=== PATIENT | male | born 1960 | race Caucasian/White ===

== ENCOUNTER 2017-02-20 09:08 | Inpatient (IN) | payer BC ==
[2017-02-05 13:28] VITALS: BMI 37.0
[2017-02-05 13:38] VITALS: BMI 37.0
[~2017-02-20] VITALS: Ht 190.5 cm; Wt 136.4 kg
[2017-02-20] VITALS (9 sets, daily range): BP systolic 110–166; BP diastolic 61–99; PULSE 67–94; TEMP 36.4–36.9; O2SAT 92–99; Ht 190.5 cm; Wt 136.4 kg
[~2017-02-20 09:08] MED LIST: ASPEC81 PO; ATOR-24 PO; ATROPINE SULFATE 0.1 MG/ML 5ML SYR IV PRN; CARV20CA PO; CEFAZOLIN 3000 MG/65 ML D5W IV SCH; CHOL20005 PO; CeleBREX 200 MG CAP PO SCH; EpHEDrine SULFATE INJ 50 MG/ML AMP IV PRN; FENTANYL CITRATE INJ 50 MCG/1 ML 2 ML VIAL IV PRN; HYDROmorphone INJ 1 MG/ML SYR IV PRN; INDO50CA97 PO; LACTATED RINGER'S 1000ML 1,000 ML IV SCH; LANS30CA63 PO; MULT-506 PO; OMEG10007 PO; ONDANSETRON INJ 2 MG/ML 2 ML VIAL IV PRN; PERI8TAB4 PO; PREGABALIN 75 MG CAP PO SCH
[2017-02-20] MEDS ORDERED: ACETAMINOPHEN 1000 MG/100 ML IV IV ONE ×2 (10:49→11:00)
[2017-02-20] MEDS ORDERED: FENTANYL CITRATE INJ 50 MCG/1 ML 2 ML VIAL ONE ×2 (10:56→14:49)
[2017-02-20] MEDS ORDERED: HYDROmorphone INJ 2 MG/ML SYR/VIAL ONE (10:57)
[2017-02-20] MEDS ORDERED: CeleBREX 200 MG CAP ONE (11:00)
[2017-02-20] MEDS ORDERED: PREGABALIN 75 MG CAP ONE (11:01)
[2017-02-20] MEDS ORDERED: CEFAZOLIN IV 3,000 MG/65 ML D5W IV ONE (11:01)
[2017-02-20] MEDS ORDERED: THROMBIN FOR SOLN 20000 UNIT KIT ONE ×2 (11:47→13:06)
[2017-02-20] MEDS ORDERED: THROMBIN 5000 UNITS KIT ONE (11:47)
[2017-02-20] MEDS ORDERED: HEPARIN SOD (PORCINE) 1000 UNIT/ML 10 ML VIAL ONE (11:47)
[2017-02-20] MEDS ORDERED: BACITRACIN 50000 UNIT VIAL ONE (11:47)
[2017-02-20] MEDS ORDERED: BUPIVACAINE/EPINEPHRINE 0.5% MPF 1:200,000 30 ML VIAL ONE (11:47)
--- NOTE | 2017-02-20 11:54 | History and Physical ---
History & Physical Date Feb 20, 2017. Chief Complaint LBP and neurogenic claudication History of Present Illness The patient is a 57 year old male with complaints of above due to spinal stenosis above a prior L3-5 PSF. He did well for years following prior procedure then reported decreased activity tolerance. He can only walk a quarter mile before sitting and is unable to work at this time due to pain. MRI shows L2-3 stenosis/DDD/scoliosis. stable caudal hardware. Past Medical/Surgical History CAD s/p CABG 2006 echo EF 55% good exercise tolerance cleared by cards periph neuropathy OA ACDF lumbar fusion Additional History Hepatic Disease: No Endocrine Disorder: No Kidney Disease: No Hypertension: No Heart Disease: Yes Bleeding Tendencies: No Infectious Diseases: No Allergies Coded Allergies: Diazepam (Verified Allergy, Severe, HEART STOPPED, 02/20/17) NURSE PUSHED IT IN TOO FAST Home Medications Scheduled Aspirin Enteric Coated (Ecotrin Or Generic *), 81 MG PO HS Atorvastatin (Lipitor), 40 MG PO QPM Carvedilol Phosphate (Coreg Cr), 20 MG PO QAM Cholecalciferol (Vitamin D3), 2,000 UNIT PO QAM Fish Oil ([place]-3), 1 CAP PO QAM Lansoprazole (Prevacid), 30 MG PO HS Multivitamin (Multivitamin), 1 TAB PO QAM Perindopril Erbumine (Perindopril Erbumine), 8 MG PO QAM Scheduled PRN Indomethacin (Indocin), 50 MG PO TID PRN for PRN Physical Examination Skin: warm/dry Eyes: normal inspection ENT: normal ENT inspection Head: normocephalic, atraumatic Neck: supple, trachea midline Respiratory/Chest: lungs clear, no respiratory distress Cardiovascular: regular rate, rhythm Abdomen / GI: non tender Extremities: normal inspection, normal range of motion Neurologic/Psych: no motor/sensory deficits, alert, normal reflexes, oriented x 3 Diagnosis L2-3 stenosis, L1-3 scoliosis/DDD Plan of Treatment L2-3 decompression, L1-3 PSF
[2017-02-20] MEDS ORDERED: EpHEDrine SULFATE 50MG/5ML SYR ONE (14:11)
[2017-02-20] MEDS ORDERED: LIDOCAINE HCL 2% 2 ML VIAL (20MG/ML) ONE (14:11)
[2017-02-20] MEDS ORDERED: ONDANSETRON INJ 2 MG/ML 2 ML VIAL ONE (14:11)
[2017-02-20] MEDS ORDERED: ROCURONIUM BROMIDE 10 MG/ML 5 ML VIAL ONE (14:11)
[2017-02-20] MEDS ORDERED: EpHEDrine SULFATE INJ 50 MG/ML AMP ONE (14:11)
[2017-02-20] MEDS ORDERED: PROPOFOL IV EMULSION 10 MG/ML 20 ML VIAL IV ONE (14:11)
[2017-02-20] MEDS ORDERED: DEXAMETHASONE SOD INJ 4 MG/ML VIAL ONE (14:11)
[2017-02-20] MEDS ORDERED: PHENYLEPHRINE HCL INJ 10 MG/ML VIAL ONE (14:11)
[2017-02-20] MEDS ORDERED: SODIUM CHLORIDE 0.9% INJ 10 ML VIAL ONE (14:11)
[2017-02-20] MEDS ORDERED: FLOSEAL HEMOSTATIC MATRIX 10ML TOP ONE (14:13)
[2017-02-20] MEDS ORDERED: LARYING-O-JET KIT (LTA) EXT ONE ×2 (14:13)
[2017-02-20] MEDS ORDERED: NEOSTIGMINE METHYLSULFATE 5 MG/5 ML SYR ONE (14:13)
[2017-02-20] MEDS ORDERED: GLYCOPYRROLATE INJ 0.2 MG/ML VIAL ONE (14:13)
[2017-02-20] MEDS ORDERED: SODIUM CHLORIDE 0.9% 1000ML 1,000 ML IV SCH (14:34)
--- NOTE | 2017-02-20 14:34 | [facility] Post Operative Brief Note ---
Immediate Operative Summary Operative Date Feb 20, 2017. Pre-Operative Diagnosis L2-L3 Spinal Stenosis, L1-L3 Scoliosis, Degenerative Joint Disease Post-Operative Diagnosis Same as preoperative. Procedure(s) Performed L2-L3 Decompression; L3 Hardware Removal, L1-L3 Instrumented Fusion; Infuse; Arteriocyte Surgeon Urgent Care Physician Assistant Surgeon(s) None Estimated Blood Loss 400ML Findings dict Specimens A. Removed Lumbar Hardware
[2017-02-20] MEDS ORDERED: ALUMINUM/MAGNESIUM SUSP 30 ML UDC PO PRN (14:45)
[2017-02-20] MEDS ORDERED: NALOXONE HCL 0.4 MG/1 ML VIAL/CARP IV PRN ×2 (14:45)
[2017-02-20] MEDS ORDERED: SOD PHOSPHATE/SOD BIPHOSPHATE ENEMA 132 ML BTL PR PRN (14:45)
[2017-02-20] MEDS ORDERED: PROMETHAZINE HCL INJ 12.5 MG in SODIUM CHLORIDE 0.9% 50ML 50 ML IV PRN (14:45)
[2017-02-20] MEDS ORDERED: FAMOTIDINE 20 MG TAB PO PRN (14:45)
[2017-02-20] MEDS ORDERED: ONDANSETRON INJ 2 MG/ML 2 ML VIAL IV PRN (14:45)
[2017-02-20] MEDS ORDERED: BISACODYL 10 MG SUPP PR PRN (14:45)
[2017-02-20] MEDS ORDERED: HYDROmorphone INJ 0.5 MG/0.5 ML SYR IV PRN (14:45)
[2017-02-20] MEDS ORDERED: MAGNESIUM HYDROXIDE SUSP 30 ML UDC PO PRN (14:45)
--- NOTE | 2017-02-20 14:49 | DIAGNOSTIC IMAGING REPORT ---
LUMBAR SPINE 2 OR 3 VIEW CLINICAL HISTORY: T12-L3 DECOMPRESSION/FUSION/INTERBODY operative fusion TECHNIQUE: Image intensifier COMPARISON STUDY: None FINDINGS: Image intensifier was used for lumbar laminectomy and fusion IMPRESSION: Image intensifier usage for lumbar laminectomy and fusion Electronically signed by: Damián Doss M.D. 02/20/2017 2:48 PM Dictated Date/Time: 02/20/2017 2:47 PM
[2017-02-20] MEDS: HYDROmorphone HCL 0.5MG/ML 50 ML CASSETTE IV PRN ×3 (15:02→19:22)
--- NOTE | 2017-02-20 15:15 | Anesthesiology Progress Note ---
Anesthesia Post Op Note Date & Time Feb 20, 2017 at 15:15 Vital Signs Pain Intensity: 6 Vital Signs Past 12 Hours Date Time Temp Pulse Resp B/P Pulse Ox O2 Delivery O2 Flow Rate FiO2 02/20/17 15:02 80 16 97 02/20/17 15:02 80 16 02/20/17 15:00 156/83 02/20/17 14:57 84 16 95 02/20/17 14:57 84 16 02/20/17 14:52 74 12 02/20/17 14:52 75 12 97 02/20/17 14:50 146/73 02/20/17 14:47 76 19 02/20/17 14:47 86 19 97 02/20/17 14:45 146/70 02/20/17 14:42 36.4 67 16 148/78 97 Mask 10 02/20/17 14:42 65 14 96 02/20/17 14:42 65 14 02/20/17 09:26 36.7 75 18 166/99 Room Air Notes Mental Status: alert / awake / arousable, participated in evaluation Pt Amnestic to Procedure: Yes Nausea / Vomiting: adequately controlled Pain: adequately controlled Airway Patency, RR, SpO2: stable & adequate BP & HR: stable & adequate Hydration State: stable & adequate Anesthetic Complications: no major complications apparent
[2017-02-20] MEDS: SODIUM CHLORIDE 0.9% 1000ML 1,000 ML IV SCH (17:10)
[2017-02-20] MEDS: ACETAMINOPHEN IV 100 ML IV PRN (17:25)
[2017-02-20] MEDS: CEFAZOLIN IV 2,000 MG in DEXTROSE 5% 50ML 50 ML IV SCH (20:58)
[2017-02-20] MEDS: DOCUSATE SODIUM/SENNA 50/8.6MG TAB PO SCH (21:00)
[2017-02-20] MEDS: ASPIRIN 81 MG ECTAB PO SCH (21:00)
[2017-02-20] MEDS: PANTOprazole SOD 40 MG TAB PO SCH (21:01)
[2017-02-20] MEDS: ATORVASTATIN 40 MG TAB PO SCH (21:02)
[2017-02-20] MEDS: DEXAMETHASONE INJ 6 MG in SYRINGE 0 ML IV SCH (21:05)
[2017-02-21 04:00] VITALS: BP 110/71; PULSE 86; TEMP 36.7; O2SAT 95
[2017-02-21] MEDS: CEFAZOLIN IV 2,000 MG in DEXTROSE 5% 50ML 50 ML IV SCH (04:05)
[2017-02-21] MEDS: SODIUM CHLORIDE 0.9% 1000ML 1,000 ML IV SCH (04:06)
[2017-02-21] MEDS: ACETAMINOPHEN IV 100 ML IV PRN ×2 (05:26→13:38)
[2017-02-21] MEDS: DEXAMETHASONE INJ 6 MG in SYRINGE 0 ML IV SCH ×2 (05:30→13:38)
[2017-02-21] MEDS ORDERED: HYDROmorphone INJ 1 MG/ML SYR IV PRN (06:00)
[2017-02-21] MEDS ORDERED: DC PCA ONE (06:00)
[2017-02-21] MEDS ORDERED: HYDROmorphone INJ 0.5 MG/0.5 ML SYR IV PRN (06:00)
[2017-02-21 07:06] LABS: BASO % 0.1 %; BASO ABS # 0.01 K/uL (0-0.2); COMPLETE YES; HEMATOCRIT 39.9 % (42-52); IG% 0.3 %; LYMPH % 6.1 %; LYMPH ABS # 1.07 K/uL (1.2-3.4); MEAN CELL VOLUME 86.6 fL (80-100); MEAN CORPUSCULAR HEMOGLOBIN 30.4 pg (25-34); MEAN CORPUSCULAR HGB CONC 35.1 g/dl (32-36); MONO % 6.1 %; NEUT % 87.4 %; PLATELET COUNT 225 K/uL (130-400); RED BLOOD COUNT 4.61 M/uL (4.7-6.1); WHITE BLOOD COUNT 17.64 K/uL (4.8-10.8)
[2017-02-21 07:28] VITALS: BP 128/82; PULSE 89; TEMP 36.6; O2SAT 93
[2017-02-21 07:43] LABS: BUN/CREATININE RATIO 16.1 (10-20); CALCIUM 8.5 mg/dl (8.5-10.1); CREATININE 1.9 mg/dl (0.60-1.40); POTASSIUM 4.7 mmol/L (3.5-5.1)
[2017-02-21] MEDS: MULTIVITAMIN TAB PO SCH (08:35)
[2017-02-21] MEDS: LISINOPRIL 20 MG TAB PO SCH (08:35)
[2017-02-21] MEDS: CARVEDILOL CR 20 MG CAPER PO SCH (08:35)
[2017-02-21] MEDS: OXYCODONE HCL IR 5 MG TAB (IMMEDIATE RELEASE) PO PRN ×2 (08:39→19:12)
[2017-02-21] MEDS: CHOLECALCIFEROL 1000 INTER.UNIT TAB PO SCH (09:00)
--- NOTE | 2017-02-21 10:43 | Anesthesiology Progress Note ---
Anesthesia Post Op Note Date & Time Feb 21, 2017 at 10:43 Vital Signs Pain Intensity: 4.0 Vital Signs Past 12 Hours Date Time Temp Pulse Resp B/P Pulse Ox O2 Delivery O2 Flow Rate FiO2 02/21/17 07:28 36.6 89 20 128/82 93 Room Air 02/21/17 04:00 36.7 86 18 110/71 95 Room Air 02/20/17 23:15 36.9 90 18 115/71 96 Nasal Cannula 4.0 02/20/17 23:15 Nasal Cannula 2.0 Notes Mental Status: alert / awake / arousable, participated in evaluation Pt Amnestic to Procedure: Yes Nausea / Vomiting: adequately controlled Pain: adequately controlled Airway Patency, RR, SpO2: stable & adequate BP & HR: stable & adequate Hydration State: stable & adequate Anesthetic Complications: no major complications apparent
[2017-02-21] MEDS ORDERED: NURSING VERBAL MED ORDER ONE ×3 (11:15→13:45)
[2017-02-21] MEDS: INDOMETHACIN 25 MG CAP PO SCH ×2 (14:07→21:00)
[2017-02-21 15:17] VITALS: BP 133/89; PULSE 70; TEMP 36.9; O2SAT 92
[2017-02-21] MEDS: DOCUSATE SODIUM/SENNA 50/8.6MG TAB PO SCH (21:49)
[2017-02-21] MEDS: PANTOprazole SOD 40 MG TAB PO SCH (21:49)
[2017-02-21] MEDS: ASPIRIN 81 MG ECTAB PO SCH (21:49)
[2017-02-21] MEDS: ATORVASTATIN 40 MG TAB PO SCH (21:49)
[2017-02-21 23:47] VITALS: BP 115/66; PULSE 65; TEMP 36.3; O2SAT 100
[2017-02-21 23:52] VITALS: BP 111/57; PULSE 78; TEMP 36.7; O2SAT 94
[2017-02-22] MEDS ORDERED: POLYETHYLENE (MIRALAX) 17 GM PACK PO SCH (06:00)
[2017-02-22] MEDS: OXYCODONE HCL IR 5 MG TAB (IMMEDIATE RELEASE) PO PRN ×2 (06:21→11:27)
[2017-02-22 06:51] VITALS: BP 122/69; PULSE 81; TEMP 36.6; O2SAT 94
[2017-02-22 07:35] VITALS: BP 168/94; PULSE 73; TEMP 36.7; O2SAT 94
[2017-02-22 07:36] VITALS: O2SAT 94
[2017-02-22 08:13] VITALS: BP 134/78
[2017-02-22] MEDS: MULTIVITAMIN TAB PO SCH (08:51)
[2017-02-22] MEDS: CARVEDILOL CR 20 MG CAPER PO SCH (08:51)
[2017-02-22] MEDS: INDOMETHACIN 25 MG CAP PO SCH (08:51)
[2017-02-22] MEDS: CHOLECALCIFEROL 1000 INTER.UNIT TAB PO SCH (08:52)
[2017-02-22] MEDS: ACETAMINOPHEN IV 100 ML IV PRN (08:52)
[2017-02-22] MEDS: LISINOPRIL 20 MG TAB PO SCH (08:52)
--- NOTE | 2017-02-22 09:43 | Orthopedic Progress Note ---
Orthopedic Progress Note Date of Service Feb 22, 2017. Subjective Post OP Day: 2 Reports: feeling well, pain controlled w PO medications, Denies: SOB, calf pain , chest pain, complaints, light headedness, nausea / vomiting, using PLAY[employer] REPRESENTATIVE Objective calves soft nontender, N/V intact, dressing C/D/I, A&O x3, hemovac drainage Date Time Temp Pulse Resp B/P Pulse Ox O2 Delivery O2 Flow Rate FiO2 02/22/17 08:13 134/78 02/22/17 07:36 94 Room Air 02/22/17 07:35 36.7 73 18 168/94 94 Room Air 02/22/17 07:15 Room Air 02/22/17 06:51 36.6 81 18 122/69 94 Room Air 02/22/17 00:30 Room Air 02/21/17 23:52 36.7 78 16 111/57 94 Room Air 02/21/17 16:30 Room Air 02/21/17 15:17 36.9 70 16 133/89 92 Room Air Assessment & Plan Assessment: headaches improved on indocin, walking well, drain output has slowed, HD stable , possible d/c home Discharge Planning Discharge Planning: home Pain Management: Oxy IR DVT Prophylaxis: SCDs
--- NOTE | 2017-02-22 09:45 | Discharge Instructions ---
Discharge Instructions Date of Service Feb 22, 2017. Admission Reason for Admission: Spinal Stenosis Discharge Discharge Diagnosis / Problem: same Discharge Goals Goal(s): Decrease discomfort Activity Recommendations Activity Limitations: per Instructions/Follow-up section . Instructions / Follow-Up Instructions / Follow-Up ACTIVITY RECOMMENDATIONS: SELF CARE INSTRUCTIONS AFTER THORACIC/LUMBAR FUSIONS 1. You may walk to your tolerance. It is good exercise for your legs and back. Expect some back and intermittent leg aches and pains. 2. You may perform "counter-top" level activities (make a sandwich, diaz with a project, etc.). 3. No bending or lifting of more than 10 pounds or back twisting of any nature (roll like a log when turning in bed). 4. You may ride in a car for 20-30 minutes at a time. No driving until after your first visit with your doctor. 5. Frequent changes of position and restricting sitting to 30 minutes at a time will help limit the amount of back spasms and stiffness you may experience. 6. You may discontinue the use of ambulatory aids (cane, crutches, etc.) once your strength and confidence allow. 7. You may burnishing machine operator the shower and let water strike your incision when you arrive home at least once daily. Do not take a tub bath, sit in a hot tub or go into a swimming pool until after your first recheck in the office. SPECIAL CARE INSTRUCTIONS: VERY IMPORTANT TO READ AND REVIEW A. Your surgical incision has been closed with a cosmetic suture under the skin that will dissolve in about 6 weeks. In 14 days, you can use a pair of clean scissors and cut the suture that is left outside of the skin at the ends of your incision. 1. The small skin tapes can be removed 7 days after surgery if they have not fallen off by that point. 2. You may keep the wound open to air as much as possible to promote healing after post-op day number 5 unless told otherwise by your doctor. 3. If you think the wound looks like it is becoming infected (redness or worsening drainage) and/or you are experiencing fever, chill or worsening back pain and muscle spasms, contact the office so that we may evaluate you as soon as possible. B. Complications are uncommon, but please contact us if you have any signs or symptoms of: 1. wound infection (fever higher than 102.5 degrees F, redness, separation of wound, drainage, or increasing pain from the incision) 2. blood clots in legs (pain, swelling, redness and warmth in legs) 3. urinary tract infection (fever higher than 102.5 degrees F, burning upon urination or increased frequency of urination) 4. nerve problems (inability to walk on your toes or heels, numbness, loss of bowel or bladder control) 5. any other symptoms that concern you C. Please call the office at if you have any concerns or questions about your operation or recovery. D. No smoking! Smoking drastically decreases the chance of a solid fusion. E. Do not take any anti-inflammatory medications (Indocin, Advil, Motrin, Aspirin, Naprosyn, etc.) as these may inhibit the chance of a solid fusion. Tylenol is okay to take for pain. MANAGING PAIN AFTER SPINAL SURGERY 1. Narcotic medication is intended for short-term use and will be provided for surgical pain. Surgical pain usually lasts for a period of 4-6 weeks. Narcotic medication includes Percocet, Vicodin, Darvocet, Tylenol #3 or Lortab. 2. Longer-term pain is more appropriately treated with non-narcotic medication such as Tylenol ES. 3. Muscle spasm is not appropriately treated with narcotics. Muscle relaxers such as Soma, Flexeril or Skelaxin can be used along with Tylenol ES. 4. Remember that we all live with some "aches and pains". This is not unusual or uncommon after an injury or as we get older. a. Back pain is expected and may include muscle spasms for 4 to 6 weeks after surgery. The pain should gradually improve. If the pain worsens for no apparent reason, please contact the office. b. Intermittent leg pain may also be experienced and should not be concerned about unless it worsens for no apparent reason. If so, please contact the office. 5. We will provide appropriate medication within the normal guidelines of their prescribed use. We will also be very cautious and aware of potential abuse and extended duration of patients' medication needs. a. Pain medications are for your comfort and to assist with sleep and rest so that the tissue can heal. They are not provided in order to return to normal activity and should not be used through the day. To do so or worsening pain at night can result from ongoing tissue damage and development of tolerance to the prescribed medicine. 6. Please allow 2-3 days to process refills. Prescriptions will not be mailed but must be picked up at the office. FOLLOW UP VISIT: Keep your scheduled follow-up appointment. Any questions, please call the office at . Current Hospital Diet Patient's current hospital diet: Regular Diet Discharge Diet Recommended Diet: Regular Diet Procedures Procedures Performed: L2-L3 Decompression; L3 Hardware Removal, L1-L3 Instrumented Fusion; Infuse; Arteriocyte Pending Studies Studies pending at discharge: no Medical Emergencies . Who to Call and When: Medical Emergencies: If at any time you feel your situation is an emergency, please call 911 immediately. . Non-Emergent Contact Non-Emergency issues call your: Surgeon . "Provider Documentation" section prepared by Michael Vang. VTE Core Measure Inpt VTE Proph given/why not?: SCD's [place] Drug Monitoring Program Search Results: patient reviewed within database
[2017-02-22] MEDS ORDERED: RXC5 PO (10:12)
[2017-02-22 10:45] VITALS: BP 134/78; PULSE 73; TEMP 36.7; O2SAT 94
[2017-02-22 11:35] VITALS: BP 148/72; PULSE 67; TEMP 36.6; O2SAT 94
--- NOTE | 2017-02-26 15:56 | OPERATIVE REPORT ---
DATE OF OPERATION: 02/20/2017 PREOPERATIVE DIAGNOSES: 1. Previous L3-L5 instrumented fusion. 2. L2-3 spinal stenosis. 3. L1-2 facet arthrosis and disc degeneration. 4. Lumbar scoliosis. POSTOPERATIVE DIAGNOSIS: Same. PROCEDURES: 1. Hardware removal bilateral L3. 2. L2 laminectomy with bilateral L2-3 medial facetectomies. 3. Segmental pedicle screw instrumentation with K2M [place] screws -- bilateral L1 and L2 with primo connection to L3. 4. Posterolateral fusion L1-L3 -- bilateral with Infuse BMP on a collagen sponge, tricalcium phosphate, local bone, bone putty and bone marrow aspirate. 5. Right iliac crest bone marrow aspiration stem cell concentration Arteriocyte system and application of bone graft. SURGEON: Dr. Vang. GLUE BONE DRIER: OR staff. ANESTHESIA: General endotracheal anesthesia. COMPLICATIONS: None. ESTIMATED BLOOD LOSS: 400 mL. OPERATION AND FINDINGS: PROCEDURE: After identification of patient and operative level, he was brought to the OR where he underwent induction of general anesthesia. He was then positioned prone on Ronaldo OR table. All bony prominences were well padded. Care was taken to avoid pressure on the periorbital area. Lumbosacral area was sterilely prepped and draped in usual fashion. Antibiotics were administered. Time-out was performed. Level was confirmed and skin incision was infiltrated with 0.5% Marcaine with epinephrine and skin incision was made from spinous process of L1-L4 with exposure of the top end of the previous hardware and posterior elements of L1, 2 and 3. I placed Gelpi retractors, confirmed level and then proceeded to remove the screws at L3 bilaterally. This allowed for later primo-to-primo connector applications. I then did an L2 laminectomy with takedown of the L2-C3 ligamentum flavum and removal of the L2-3 facets medically with an osteotome. I completed decompression with Kerrisons and palpated the nerve roots decompressed. I then used a high speed sarahi to decorticate the facets of L1-2 and L2-3, removal of all facet capsules and then decortication of the transverse process. I then placed pedicle screws bilaterally from L1 to L2. Subsequent Gray was lowered and rods were applied across the screws L1-2 and then connected to the rods of the previous fusion. This was at the L3 level. I then final tightened all endcaps, primo-to-primo connectors and placed a crosslink. Bone marrow was aspirated from the right iliac crest via separate stab incision with a Jamshidi needle and then concentrated with Arteriocyte and applied to bone graft infant teacher mixed with morcellized local bone. I then applied Infuse BMP on a collagen sponge, tricalcium phosphate and packed the lateral gutters that had previously had been decorticated with a high speed bur from L1-L3 with a bone graft mixture bilaterally. I did irrigate prior to bone grafting and then obtained final x-rays. I then closed in layered fashion after confirmation of hemostasis over DUSTIN drain. All sponge and needle counts were correct at the end of the case. I attest to the content of the Intraoperative Record and any orders documented therein. Any exceptions are noted below. LOLIS
--- NOTE | 2017-03-12 09:53 | Discharge Summary ---
Orthopedic Discharge Summary Admission Date/Reason Feb 20, 2017 at 14:38 Spinal Stenosis. Discharge Date/Disposition Feb 22, 2017 Home Diagnosis Principal Diagnosis: spinal stenosis Procedure(s) Performed Lumbar decompression/fusion Medication Reconciliation New Medications: Oxycodone HCl (Oxycodone HCl) 5 Mg Tab 5-10 MG PO Q4H PRN for Moderate - severe pain, #100 TAB Continued Medications: Aspirin Enteric Coated (Ecotrin Or Generic *) 81 Mg Ectab 81 MG PO HS, 0 Refills Atorvastatin (Lipitor) 40 Mg Tab 40 MG PO QPM, 0 Refills Carvedilol Phosphate (Coreg Cr) 20 Mg Cap 20 MG PO QAM, CAP Cholecalciferol (Vitamin D3) 2,000 Unit Tab 2000 UNIT PO QAM Fish Oil ([place]-3) 1 Ea Cap 1 CAP PO QAM, 0 Refills Indomethacin (Indocin) 50 Mg Cap 50 MG PO TID PRN for PRN, #20 CAP WITH FOOD UNTIL PAIN RESOLVES Lansoprazole (Prevacid) 30 Mg Cap 30 MG PO HS, CAP Multivitamin (Multivitamin) Tab 1 TAB PO QAM, 0 Refills Perindopril Erbumine (Perindopril Erbumine) 8 Mg Tab 8 MG PO QAM Admission Physical Exam As per Admitting History & Physical. Hospital Course He was admitted for elective lumbar fusion due to adjacent level spinal stenosis above a prior fusion. He did well, mobilized independently, his pain was controlled with oral meds, he had return of bowel function and was d/c'd POD2 in stable condition. Discharge Instructions Please refer to the electronic Patient Visit Report (Discharge Instructions) for additional information.
== END 2017-02-22 12:18 | disposition home or self-care (01) | DRG 460 ==
LOC: ENRESERVTM → ENRESERVDT → C.ACU 09:08 → C.MSN 14:38
PROVIDERS: ADMIT Orthopaedic Surgery Orthopaedic Surgery of the Spine; ATTEND Orthopaedic Surgery Orthopaedic Surgery of the Spine
PROC: 0SP004Z Removal of Internal Fixation Device from Lumbar Vertebral Joint, Open Approach (ICD-10-PCS; principal; 2017-02-20 11:00)
PROC: 0SG1071 Fusion of 2 or more Lumbar Vertebral Joints with Autologous Tissue Substitute, Posterior Approach, Posterior Column, Open Approach (ICD-10-PCS; principal; 2017-02-20 11:00)
PROC: 07DR3ZZ Extraction of Iliac Bone Marrow, Percutaneous Approach (ICD-10-PCS; principal; 2017-02-20 11:00)
DX: M48.06 Spinal stenosis, lumbar region (principal); M41.86 Other forms of scoliosis, lumbar region; I25.10 Atherosclerotic heart disease of native coronary artery without angina pectoris; Z95.1 Presence of aortocoronary bypass graft; M51.36 Other intervertebral disc degeneration, lumbar region